=== PATIENT | female | born 1945 | race Caucasian/White ===

== ENCOUNTER 2019-01-22 12:55 | Outpatient (CLI) | payer MEDICARE ==
--- NOTE | 2019-01-22 14:52 | MRI ---
Exam: MRI CERVICAL SPINE WITHOUT CONTRAST: HISTORY: Cervical radicular pain.. COMPARISON: None FINDINGS: Appropriate T1 marrow signal intensity of the cervical vertebra. Cervical spine vertebral body heigh t is maintained. No fracture. No significant STIR hyperintensity to suggest vertebral body edema or ligamentous injury Visualized brain parenchyma, cervical medullary junction, cervical cord, and the upper thoracic cord have normal size and signal intensity. C2-C3: No significant central canal stenosis. Mild right foraminal narrowing due to uncovertebral hyp ertrophy. Left neural foramen is patent C3-C4: Broad-based discussed by complex with a central component. Ventral subarachnoid space is effac ed. Mild flattening of the ventral cord, without T2 hyperintensity in the cord. Mild central canal stenosis. Mild right foraminal narrowing due to uncovertebral hypertrophy. Left neural foramen is pat ent. C4-C5: Broad-based discussed by complex effaces the ventral subarachnoid space and deforms the cervic al cord. Moderate central canal stenosis. Mild bilateral foraminal narrowing due to uncovertebral hypertrophy. C5-C6: Broad-based discussed by complex effaces the ventral subarachnoid space. Flattening of the cer vical cord. Moderate central canal stenosis. Right neural foramen is patent. Mild left foraminal narrowing due to uncovertebral hypertrophy. C6-C7: No significant central canal stenosis or neural foraminal narrowingg. C7-T1: No significant central canal stenosis or neural foraminal narrowing. IMPRESSION: Degenerative changes of cervical spine as above. Transcribed Date/Time: 01/22/2019 3:04 PM
--- NOTE | 2019-01-22 15:11 | MRI ---
Exam: MRI THORACIC SPINE WITHOUT CONTRAST: HISTORY: Thoracic radiculopathy. Upper back pain x6-7 months. Left-sided pain worse than right side. COMPARISON: None. FINDINGS: Appropriate T1 marrow signal intensity of the thoracic vertebra. Thoracic spine vertebral body height is maintained. No fracture. No significant STIR hyperintensity to suggest vertebral body edema. Intrinsic T1 and T2 hyperintensity at T6 may represent a small hemangioma. Visualized mediastinal structures, lung parenchyma and solid organs are grossly unremarkable. Conus medullaris terminates just beyond the T12-L1 disc space. Thoracic cord has normal size and signal intensity. No cord malacia. No T2 hyperintensity in the cord . No cord expansion. T4-T5: Minimal left paracentral disc bulge. No significant central canal stenosis. T5-T6: Left paracentral disc bulge abuts the thecal sac and minimally indents the left hemicord. Mini mal central canal stenosis. With regards to the remainder of the thoracic spine, central spinal canal is patent. There is no significant neural foraminal narrowing throughout the thoracic spine. IMPRESSION: Degenerative disc disease at T4-T5 and T5-T6 without significant central canal stenosis or neural for aminal narrowing. Transcribed Date/Time: 01/22/2019 3:51 PM
== END 2019-01-22 12:56 | disposition home or self-care (01) ==
LOC: BICMRI 12:55
PROVIDERS: ATTEND Neurological Surgery
DX: M51.14 Intervertebral disc disorders with radiculopathy, thoracic region (principal); M47.22 Other spondylosis with radiculopathy, cervical region
CPT/HCPCS: 72141; 72146